=== PATIENT | male | born 1955 | race Caucasian/White ===

== ENCOUNTER 2018-04-08 07:34 | Day surgery (SDC) | payer OTHER ==
[2018-04-08] MEDS ORDERED: PROPOFOL 10 MG/ML VIAL IV ONE (07:35)
[2018-04-08] MEDS ORDERED: LIDOCAINE 2% MDV (20MG/ML) 20ML VIAL IV ONE (07:35)
--- NOTE | 2018-04-08 16:50 | Operative Note ---
DATE OF SURGERY: 04/08/2018 REFERRING PROVIDER: Lele Wilder MD PREOPERATIVE DIAGNOSIS: Personal history of colon polyps. POSTOPERATIVE DIAGNOSIS: Includes descending polyp and rectal polyp. OPERATION: COLONOSCOPY with cold-snare polypectomy x 2. Preparation Quality: Good. Estimated Blood Loss: Minimal. Samples Obtained: Includes descending polyp and rectal polyp. Complications: None apparent. PROCEDURE: After informed consent was obtained, the patient was placed in the left lateral decubitus position in the endoscopy suite, sedated and monitored by the Department of Anesthesia. Digital rectal exam revealed no palpable rectal mass. A well-lubricated PCF-190 colonoscope was inserted into the rectum and advanced to the cecum. The preparation quality was good. The cecum, cecal bulb, ascending colon, and transverse colon were unremarkable. The descending colon revealed a 4 mm sessile polyp removed with a cold snare. The polyp was retrieved. Minimal bleeding was noted. The remainder of the descending colon and sigmoid colon were unremarkable. There was a 3-4 mm sessile rectal polyp removed with a cold snare. Minimal bleeding noted. The polyp was retrieved. J-turn views of the anorectum were unremarkable. The endoscope was straightened, the rectal ampulla deflated and the endoscope was removed. RECOMMENDATIONS: The patient should resume his medications and diet. He will require repeat exam in 5 years for continued surveillance. As always, thank you for allowing me to participate in the health care of your patients. CC: Lele Wilder MD [facility]
== END 2018-04-08 09:30 | disposition home or self-care (01) ==
LOC: HOP 07:34
PROVIDERS: ATTEND Internal Medicine Gastroenterology
DX: Z09 Encounter for follow-up examination after completed treatment for conditions other than malignant neoplasm (principal); Z86.010 Personal history of colon polyps; D12.4 Benign neoplasm of descending colon; K62.1 Rectal polyp